=== PATIENT | male | born 1980 | race Caucasian/White ===

== ENCOUNTER 2020-05-07 17:30 | Emergency (ER) | payer SELFPAY ==
[2020-05-07] MEDS ORDERED: NAPROXEN500 MG PO (19:07)
[2020-05-07] MEDS ORDERED: BACLOFEN 10MG T10 MG PO (19:07)
== END 2020-05-07 19:32 | disposition home or self-care (01) ==
LOC: FER 17:30
DX: S39.012A Strain of muscle, fascia and tendon of lower back, initial encounter (principal); J45.909 Unspecified asthma, uncomplicated; F17.210 Nicotine dependence, cigarettes, uncomplicated; X50.9XXA Other and unspecified overexertion or strenuous movements or postures, initial encounter; Y92.828 Other wilderness area as the place of occurrence of the external cause
CPT/HCPCS: 71046; 72072; 96372; J1100; J1885

== ENCOUNTER 2021-05-11 11:53 | Emergency (ER) | payer OTHER ==
[~2021-05-11 11:53] MED LIST: BACLOFEN 10MG T10 MG PO; NAPROXEN500 MG PO
[2021-05-11] MEDS ORDERED: MIRALAX17 GM PO (12:40)
[2021-05-11] MEDS ORDERED: LIDOCAINE 2%30 ML TOP (12:40)
[2021-05-11] MEDS ORDERED: STOOL SOFTENER100 MG PO (12:40)
== END 2021-05-11 13:00 | disposition home or self-care (01) ==
LOC: FER 11:53
DX: K64.8 Other hemorrhoids (principal); K64.5 Perianal venous thrombosis; J45.909 Unspecified asthma, uncomplicated
CPT/HCPCS: 99282

== ENCOUNTER 2021-05-13 17:19 | Emergency (ER) | payer OTHER ==
[~2021-05-13 17:19] MED LIST changes: +LIDOCAINE 2%30 ML TOP; +MIRALAX17 GM PO; +STOOL SOFTENER100 MG PO
== END 2021-05-13 19:25 | disposition home or self-care (01) ==
LOC: FER 17:19
DX: K64.5 Perianal venous thrombosis (principal)
CPT/HCPCS: 99282